=== PATIENT | female | born 1975 | race Asian ===

== ENCOUNTER 2017-06-11 13:48 | Emergency (ER) | payer OTHER ==
[~2017-06-11] VITALS: Ht 175.3 cm; Wt 97.5 kg
[2017-06-11 16:47] LABS: PLATELET COUNT 755 K/uL (152-353)
[2017-06-11 16:54] LABS: POTASSIUM 4.7 mmol/L (3.6-5.2); SODIUM 133 mmol/L (136-145)
== END 2017-06-11 17:40 | disposition home or self-care (01) ==
LOC: ED 13:48
PROVIDERS: Emergency Medicine
DX: R25.2 Cramp and spasm (principal); T42.8X5A Adverse effect of antiparkinsonism drugs and other central muscle-tone depressants, initial encounter
CPT/HCPCS: 80053; 83735; 85027; 99283